=== PATIENT | male | born 1940 | race Caucasian/White ===

== ENCOUNTER 2020-01-25 11:00 | Inpatient (IN) | payer OTHER ==
[~2020-01-25] VITALS: Ht 170.2 cm; Wt 83.9 kg
[2020-01-25 11:41] LABS: BASOPHILS % (AUTO) 0.3 % (0.0-5.0); EOSINOPHILS % (AUTO) 3.7 % (0.0-8.0); HEMATOCRIT 38.8 % (42-54); LYMPHOCYTES % (AUTO) 8.8 % (21.0-51.0); MEAN CORPUSCULAR HEMOGLOBIN 28.8 pg (27.0-33.0); MEAN CORPUSCULAR HGB CONC 33.5 g/dL (32.0-36.0); MEAN CORPUSCULAR VOLUME 85.8 fL (79-99); MONOCYTES % (AUTO) 8.3 % (3.0-13.0); PLATELET COUNT (AUTO) 327 K/uL (130-400); RED BLOOD CELL COUNT(AUTO) 4.52 MIL/uL (4.50-6.20); RED CELL DISTRIBUTION WIDTH 12.9 % (11.0-15.5); WHITE BLOOD COUNT (AUTO) 13.8 K/uL (4.8-10.8)
[2020-01-25 11:56] LABS: ALBUMIN 2.9 g/dL (3.5-5.0); BILIRUBIN,TOTAL 0.7 mg/dL (0.2-1.0); CREATININE 4.8 mg/dL (0.5-1.5); POTASSIUM 5.8 mmol/L (3.5-5.1); TOTAL PROTEIN, SERUM 6.9 g/dL (6.0-8.3)
[2020-01-25 11:58] LABS: INR 1.03 (0.85-1.15); PARTIAL THROMBOPLASTIN TIME 32.4 SEC (26.3-35.5); PROTHROMBIN TIME 11.1 SEC (9.6-11.6)
[2020-01-25] MEDS ORDERED: ONDANSETRON HCL 4 MG/2 ML VIAL ONE (12:23)
[2020-01-25] MEDS ORDERED: CALCIUM GLUCONATE 1 GM/10 ML VIAL IV ONE (12:23)
[2020-01-25] MEDS ORDERED: MORPHINE SULFATE 4 MG/1ML SYG ONE (12:24)
[2020-01-25] MEDS ORDERED: SODIUM BICARB 50MEQ 50ML VIAL ONE (12:24)
[2020-01-25] MEDS ORDERED: DEXTROSE 50%-WATER 50 ML DISP.SYRIN IV ONE (12:25)
[2020-01-25] MEDS ORDERED: INSULIN HUMULIN R 100 UNIT/ML 3ML ONE (12:25)
[2020-01-25] MEDS ORDERED: ALBUTEROL SULFATE 0.083% 2.5 MG/3 ML INH IH ONE (12:32)
[2020-01-25] MEDS ORDERED: LEVOFLOXACIN 500 MG/D5W 100 ML 100 ML ONE (13:13)
[2020-01-25] MEDS ORDERED: VITA1TAB22 PO (14:44)
[2020-01-25] MEDS ORDERED: OMEG-148 PO (14:44)
[2020-01-25] MEDS ORDERED: LISI-617 PO (14:44)
[2020-01-25] MEDS ORDERED: FENO145T26 PO (14:44)
[2020-01-25] MEDS ORDERED: METO-408 PO (14:44)
[2020-01-25] MEDS ORDERED: FLAX100030 PO (14:44)
[2020-01-25] MEDS ORDERED: PANT40TA25 PO (14:44)
[2020-01-25] MEDS ORDERED: GLIP2.5T2 PO (14:44)
[2020-01-25] MEDS ORDERED: MAGN250T10 PO (14:44)
[2020-01-25] MEDS ORDERED: LOVA40TA2 PO (14:44)
[2020-01-25] MEDS: SODIUM CHLORIDE 0.9% 1000ML 1,000 ML IV SCH ×2 (14:58→20:30)
[2020-01-25 15:03] LABS: APPEARANCE,URINE Clear (CLEAR); BILIRUBIN,URINE Negative (NEGATIVE); COLOR,URINE Yellow (YELLOW); GLUCOSE, URINE (UA) 500 mg/dL (NEGATIVE); KETONES,URINE Negative (NEGATIVE); LEUKOCYTE ESTERASE ,URINE Negative (NEGATIVE); NITRATE,URINE Negative (NEGATIVE); OCCULT BLOOD,URINE Negative (NEGATIVE); PROTEIN,URINE Trace mg/dL (NEGATIVE); UROBILINOGEN,URINE 0.2 mg/dL (0.2-1.0)
[2020-01-25 15:39] LABS: BACTERIA,URINE Few /HPF (None Seen); COARSE GRANULAR CASTS,URINE 0-2 /LPF (None Seen); RBC,URINE None Seen /HPF (0-1); SQUAMOUS EPITHELIAL CELL,UR None Seen /HPF (0-2); WBC,URINE 0-1 /HPF (0-1)
[2020-01-25 16:00] VITALS: BP 113/62
[2020-01-25] MEDS ORDERED: CEFTRIAXONE SODIUM 1 GM IVP SCH (16:00)
[2020-01-25] MEDS ORDERED: DEXTROSE 50%-WATER 50 ML DISP.SYRIN IV PRN (16:15)
[2020-01-25] MEDS ORDERED: GLUCAGON 1MG KIT 1 MG ML IM PRN (16:15)
[2020-01-25] MEDS: INSULIN HUMULIN R 100 UNIT/ML 3ML SQ SCH ×2 (16:30→20:54)
[2020-01-25 17:21] LABS: OCCULT BLOOD STOOL SINGLE ONLY POSITIVE (NEGATIVE)
[2020-01-25 17:26] LABS: CREATININE 4.2 mg/dL (0.5-1.5); POTASSIUM 5.3 mmol/L (3.5-5.1)
[2020-01-25] MEDS: TRAMADOL HCL 50 MG TABLET PO PRN (18:37)
[2020-01-25 20:17] VITALS: BP 129/65
[2020-01-25] MEDS ORDERED: FAMOTIDINE/PF 20 MG/2 ML VIAL IV SCH (21:00)
[2020-01-25] MEDS ORDERED: METOPROLOL SUCCINATE 50 MG TAB.SR.24H PO SCH (21:00)
[2020-01-26] VITALS: BP 124/62
[2020-01-26] MEDS: TRAMADOL HCL 50 MG TABLET PO PRN (00:55)
[2020-01-26 04:00] VITALS: BP 105/51
[2020-01-26 05:12] LABS: BASOPHILS % (AUTO) 1.3 % (0.0-5.0); EOSINOPHILS % (AUTO) 3.9 % (0.0-8.0); HEMATOCRIT 37.8 % (42-54); LYMPHOCYTES % (AUTO) 12.2 % (21.0-51.0); MEAN CORPUSCULAR HEMOGLOBIN 28.4 pg (27.0-33.0); MEAN CORPUSCULAR HGB CONC 32.3 g/dL (32.0-36.0); MEAN CORPUSCULAR VOLUME 87.9 fL (79-99); MONOCYTES % (AUTO) 8.2 % (3.0-13.0); NEUTROPHILS % (AUTO) 60.2 % (40.0-77.0); PLATELET COUNT (AUTO) 351 K/uL (130-400); RED CELL DISTRIBUTION WIDTH 13.1 % (11.0-15.5); WHITE BLOOD COUNT (AUTO) 13.5 K/uL (4.8-10.8)
[2020-01-26 05:35] LABS: CREATININE 3.6 mg/dL (0.5-1.5)
[2020-01-26] MEDS ORDERED: SODIUM POLYSTYRENE SULFONATE 15 GM/60 ML ML ONE (05:53)
[2020-01-26] MEDS ORDERED: HYDROMORPHONE HCL 0.5 MG/0.5 ML ML ONE (05:55)
[2020-01-26] MEDS ORDERED: SODIUM POLYSTYRENE SULFONATE 15 GM/60 ML ML PO SCH (05:55)
[2020-01-26] MEDS ORDERED: HYDROMORPHONE HCL 2 MG/ML VIAL IVP ONE (06:00)
[2020-01-26] MEDS: INSULIN HUMULIN R 100 UNIT/ML 3ML SQ SCH ×3 (06:09→12:55)
[2020-01-26 06:21] LABS: ERYTHROCYTE SEDIMENTATION RATE 73 MM/HR (0-20)
[2020-01-26] MEDS: ONDANSETRON HCL 4 MG/2 ML VIAL IVP PRN ×2 (06:53→09:06)
--- NOTE | 2020-01-26 07:00 | NUR ---
patient feels nauseated but refuses zofran. patient vomitted yellow vomit with green pieces of food. he threw up the kayeaxalate that was given at 06:30.
[2020-01-26 07:30] VITALS: BP 139/77
--- NOTE | 2020-01-26 08:00 | NUR ---
PT VOMITING MODERATE AMOUNT OF YELLOW/GREEN FLUID. PT IS ALSO UPSET THIS MORNING AND IS REFUSING ZOFRAN FOR THE NAUSEA. CHARGE NURSE ARELI MORSE WAS MADE AWARE. WILL CONTINUE TO MONITOR PT.
[2020-01-26] MEDS ORDERED: CALCIUM GLUCONATE 1 GM/10 ML VIAL IV SCH (08:30)
[2020-01-26] MEDS ORDERED: FISH OIL 1000 MG/CAP PO SCH (09:00)
[2020-01-26] MEDS ORDERED: FENOFIBRATE NANOCRYSTALLIZED 145 MG TAB PO SCH (09:00)
[2020-01-26] MEDS ORDERED: PANTOPRAZOLE SODIUM 40 MG TABLET.DR PO SCH (09:00)
[2020-01-26] MEDS ORDERED: VITAMIN B COMPLEX 1 CAPSULE PO SCH (09:00)
[2020-01-26] MEDS ORDERED: CEFTRIAXONE SODIUM 1 GM IVP SCH (09:00)
--- NOTE | 2020-01-26 09:00 | NUR ---
PT IS REFUSING SOME OF HIS MORNING MEDICATIONS AND TREATMENT. STATES HE DID NOT COME IN FOR ANYTHING OTHER THAN HIS JOINT PAIN AND WANTS TO SPEAK TO A DR. PT REFUSES PROPER PHYSICAL NURSE ASSESSMENT, UNABLE TO COMPLETE. EXPLAINED TO PT ABOUT THE BENEFITS AND RISKS TO FOLLOWING TREATMENT ORDERED AND ADVISED BY DR. PT CONTINUED TO STATE HE CAME IN FOR JOINT PAIN AND THAT HE ONLY WANTED TO TALK TO A DR ABOUT THAT.
[2020-01-26] MEDS ORDERED: DEXTROSE 50%-WATER 50 ML DISP.SYRIN IV SCH (09:10)
[2020-01-26] MEDS ORDERED: INSULIN HUMULIN R 100 UNIT/ML 3ML IV SCH (09:10)
[2020-01-26] MEDS ORDERED: CALCIUM GLUCONATE 1 GM in SODIUM CHLORIDE 0.9% 50 ML IV SCH (09:11)
--- NOTE | 2020-01-26 09:14 | NUR ---
PRIMARY NURSE REPORTS PT HAD EMESIS AFTER KAYEXALATE THIS AM. POTASSIUM THIS AM WAS 6.0, REPEAT POTASSIUM WAS 6.2. ORDERS HAD JUST BEEN ENTERED FOR CALCIUM GLUCONATE, ALSO RECEIVED ORDERS FOR ALBUTEROL X 1 STAT, 30 GM KAYEXALATE VT, 7 UNITS REGULAR INSULIN IVP, AND D50 1 AMP IV STAT.
[2020-01-26] MEDS ORDERED: ALBUTEROL SULFATE 0.083% 2.5 MG/3 ML INH IH SCH (09:15)
[2020-01-26] MEDS ORDERED: SODIUM POLYSTYRENE SULFONATE 15 GM/60 ML ML RC SCH (09:15)
[2020-01-26 09:18] LABS: MAGNESIUM 1.8 mg/dL (1.80-2.40); PHOSPHORUS 3.4 mg/dL (2.5-4.9); THYROID STIMULATING HORMONE 10.67 uIU/mL (0.36-3.74); URIC ACID 10.9 mg/dL (2.6-7.2)
--- NOTE | 2020-01-26 09:20 | NUR ---
PT REFUSING ALL ORDERS FOR TREATMENT OF HYPERKALEMIA (ALBUTEROL, INSULIN IV PUSH, D50, KAYEXALATE, AND CA GLUCONATE). DR LANIER IN ROOM, EXPLAINED IMPORTANCE OF MEDICATIONS TO PT, HOWEVER HE STILL REFUSED, EXCEPT AGREED TO TAKE CALCIUM GLUCONATE ONLY. PT ADAMANT THAT HE DOES NOT HAVE KIDNEY PROBLEMS. PAGED DR Evy RUFF TO NOTIFY WELL.
[2020-01-26] MEDS ORDERED: PHARMACY COMMUNICATION MISC SCH (09:45)
--- NOTE | 2020-01-26 09:50 | NUR ---
DR Evy RUFF IN ROOM, SPEAKING TO PT, HOWEVER HE IS CONTINUING TO DENY RENAL PROBLEMS. CALCIUM GLUCONATE INFUSION NOW NEARLY COMPLETE. Addendum: 01/26/20 at 1806 by MINI WINKLER RN RN at time of Dr. Evy Ruff' round ([id number]), pt quite upset, stating "I've never had kidney problems in my life" and "you're looking into things that are not your business." Orders placed for tiffanyin klever .
[2020-01-26] MEDS ORDERED: SODIUM ZIRCONIUM CYCLOSILICATE 10 GM POWD.PACK PO NR (10:00)
[2020-01-26] MEDS ORDERED: METHYLPREDNISOLONE SOD SUCC 40MG/ML 1ML IVP SCH ×2 (10:15→21:00)
[2020-01-26 11:00] VITALS: BP 129/61
[2020-01-26] MEDS: METHYLPREDNISOLONE SOD SUCC 40MG/ML 1ML IVP SCH ×2 (12:36→13:07)
--- NOTE | 2020-01-26 14:50 | NUR ---
Dr. Pierre in room, no new orders regarding left elbow mass or knee pain. Recommendations only to place left arm sleeve, follow up in office after discharge. After Dr. Pierre left room, pt stated since no interventions planned, does not need to stay hospitalized. Primary nurse in room speaking with pt about importance of compliance with orders for treatment of hyperkalemia.
--- NOTE | 2020-01-26 15:00 | NUR ---
PT REQUESTS TO LEAVE. EVEN AFTER EXPLAINING THE RISKS TO LEAVING AMA AND THE IMPORTANCES OF STAYING TO COMPLETE MEDICAL TREATMENT, PT CONTINUED TO STATE HE WAS LEAVING. PT SIGNED AMA FORM. TELE AND IV WERE REMOVED, TIP INTACT. PT BELONGINGS GATHERED AND PT WAS ESCORTED TO ER LOBBY.
--- NOTE | 2020-01-26 15:00 | NUR ---
Potassium redraw due now, pt refused, refusal forms signed.
--- NOTE | 2020-01-26 15:22 | NUR ---
INITIAL: Met with pt this afternoon to discuss dcp. Pt mentions that he lives w his alice Morales. Per pt prior to admission he was independent w ambulation and ADLs. He mentions that he does not own any DME or receive services. Per pt he still drives where needed and he feels safe and comfortable to return home at [place]. CM to continue to follow and wait for Md recommendations. Addendum: 01/26/20 at 1526 by LUCY ESPINOSA Amended: Links added.
--- NOTE | 2020-01-26 15:25 | NUR ---
SPOKE WITH DR LANIER AND DR RUFF IN REGARDS TO PT REFUSING LABS AND POTASSIUM RECHECK. PT SIGNED REFUSAL FORM AND AMA PAPER. CHARGE NURSE MINI WINKLER RN MADE AWARE.
== END 2020-01-26 16:00 | disposition left against medical advice (07) | DRG 683 ==
LOC: EDH 11:00 → INTOOBSV 12:56 → OBSVTOIN 12:56 → 3DH 12:56
PROVIDERS: ADMIT Hospitalist; ATTEND Hospitalist
DX: N17.9 Acute kidney failure, unspecified (principal); E87.1 Hypo-osmolality and hyponatremia; E78.5 Hyperlipidemia, unspecified; E87.5 Hyperkalemia; G89.29 Other chronic pain; I25.10 Atherosclerotic heart disease of native coronary artery without angina pectoris; M70.22 Olecranon bursitis, left elbow; N20.0 Calculus of kidney; R62.7 Adult failure to thrive; K21.9 Gastro-esophageal reflux disease without esophagitis; M19.90 Unspecified osteoarthritis, unspecified site; E11.22 Type 2 diabetes mellitus with diabetic chronic kidney disease; Z53.29 Procedure and treatment not carried out because of patient's decision for other reasons; R19.7 Diarrhea, unspecified; I12.9 Hypertensive chronic kidney disease with stage 1 through stage 4 chronic kidney disease, or unspecified chronic kidney disease; N18.9 Chronic kidney disease, unspecified; M10.9 Gout, unspecified; Z68.29 Body mass index [BMI] 29.0-29.9, adult; Z91.19 Patient's noncompliance with other medical treatment and regimen; Z79.899 Other long term (current) drug therapy
CPT/HCPCS: 36415; 74176; 76770; 76882; 80048; 80053; 81001; 82270; 82550; 82948; 83630; 83735; 84100; 84132; 84443; 84484; 84550; 85025; 85610; 85651; 85730; 87040; 87046; 87177; 87324; 87507; 93005; 94640; 99291; G0378; J0610; J0696; J1170; J1815; J1956; J2270; J2405; J2920; J3490; J7070

== ENCOUNTER → 2020-05-21 | Outpatient (CLI) | payer OTHER ==
[~2020-05-21] MED LIST: FENO145T26 PO; FLAX100030 PO; GLIP2.5T2 PO; LISI-617 PO; LOVA40TA2 PO; MAGN250T10 PO; METO-408 PO; OMEG-148 PO; PANT40TA25 PO; VITA1TAB22 PO
== END | disposition home or self-care (01) ==
LOC: RAH 07:43
PROVIDERS: ATTEND Family Medicine
DX: N20.0 Calculus of kidney (principal); N19 Unspecified kidney failure; I70.0 Atherosclerosis of aorta; K76.0 Fatty (change of) liver, not elsewhere classified; K82.8 Other specified diseases of gallbladder
CPT/HCPCS: 76700